=== PATIENT | male | born 1985 | race Caucasian/White ===

== ENCOUNTER 2020-05-23 06:51 | Outpatient (CLI) | payer BC, OTHER ==
[2020-05-23 17:12] LABS: Anion Gap 24 mmol/L (10-20); BUN (Urea Nitrogen) 17 mg/dL (8.9-20.6); Calc. Creatinine Clearance 0 mL/min (70-130); Calcium 8.8 mg/dL (7.8-10.44); Carbon Dioxide 22 mmol/L (22-29); Chloride 99 mmol/L (98-107); Estimated GFR-MDRD 57; Glucose 84 mg/dL (70-105); Potassium 4.7 mmol/L (3.5-5.1); Sodium 140 mmol/L (136-145)
[2020-05-23 17:15] LABS: PTT 32.9 sec (22.0-33.0); Prothrombin Time 10.6 sec (9.5-12.1)
[2020-05-23 18:08] LABS: Hemoglobin 14.1 g/dL (14.0-18.0); Mean Corpuscular HGB CONC 32.3 G/DL (32.0-36.0); Mean Corpuscular Hemoglobin 26.7 PG (27.0-33.0); Mean Corpuscular Volume 82.8 fl (80.0-100.0); Mean Platelet Volume 9.3 fl (7.4-10.4); Platelet Count 374 10x3/uL (130-400); RBC Distribution Width 13.2 % (11.5-14.5); Red Blood Cell (RBC) Count 5.28 10x6/uL (4.40-5.80); White Blood Cell (WBC) Count 8.5 10x3/uL (4.5-11.0)
[2020-05-26 00:12] LABS: SARS-CoV-2 MS2 Positive; SARS-CoV-2 N Gene Negative; SARS-CoV-2 S Gene Negative; SARS-CoV-2 by NAA Not Detected (Not Detected); SARS-CoV-2 orf1ab Negative
== END 2020-05-23 06:52 | disposition home or self-care (01) ==
LOC: LABBT 06:51
PROVIDERS: ATTEND Urology
DX: Z01.812 Encounter for preprocedural laboratory examination (principal); N20.1 Calculus of ureter; Z20.828 Contact with and (suspected) exposure to other viral communicable diseases
CPT/HCPCS: 80048; 85027; 85610; 85730; 87635; U0003

== ENCOUNTER 2020-05-28 06:02 | Day surgery (SDC) | payer BC ==
[2020-05-23 15:30] VITALS: BMI 39.8
[2020-05-28] MEDS ORDERED: Levofloxacin 500 mg/D5W 100 ml Premix Bag ONE (07:02)
[2020-05-28] MEDS ORDERED: Midazolam HCl 2 mg/2 ml Vial ONE ×2 (07:38→08:11)
--- NOTE | 2020-05-28 07:42 | RAD ---
Abdomen one view HISTORY: Preop. Renal stones. FINDINGS: Visualized bowel gas pattern is nonspecific with large amount of stool over the right colon . Double pigtail stents project over the course of each ureter, and good radiographic position. An oval 1.1 cm density obliquely overlying the mid right ureteral stent, immediately inferior to the right L2 transverse process, could represent a ureteral calculus. No other urinary tract calcifications are reliably demonstrated radiographically.
[2020-05-28] MEDS ORDERED: Iothalamate Meglumine 60% 50 ML VIAL FS ONE (08:03)
[2020-05-28] MEDS ORDERED: Fentanyl 100 MCG/2 ML VIAL ONE ×2 (08:11→10:35)
[2020-05-28] MEDS ORDERED: Famotidine/PF 20 mg/2ml Vial ONE (08:11)
[2020-05-28] MEDS ORDERED: Rocuronium Bromide 10 MG/ML (10ML VIAL) ONE (08:38)
[2020-05-28] MEDS ORDERED: EPHEDRINE 25 MG/5 ML SYRINGE ONE (08:38)
[2020-05-28] MEDS ORDERED: Ondansetron PF 4 MG/2 ML Vial ONE (08:38)
[2020-05-28] MEDS ORDERED: PROPOFOL 200 MG/20 ML VIAL ONE (08:38)
[2020-05-28] MEDS ORDERED: Metoclopramide HCl 10 MG/2 ML VIAL ONE (08:38)
[2020-05-28] MEDS ORDERED: PHENYLEPHRINE-NS 100 MCG/ML 10 ML SYRINGE ONE (08:38)
[2020-05-28] MEDS ORDERED: Lidocaine 1% PF 5 ML VIAL ONE (08:38)
[2020-05-28] MEDS ORDERED: SUGAMMADEX SODIUM 500 MG/5 ML VIAL ONE (08:43)
[2020-05-28] MEDS ORDERED: B & O ONE (09:36)
--- NOTE | 2020-05-28 10:53 | RAD ---
Retrograde pyelogram: 05/28/2020 COMPARISON: KUB 05/28/2020 HISTORY: Stone disease FINDINGS: The initial image demonstrates bilateral double-J ureteral stents. Later imaging demonstrat es replacement of bilateral double-J ureteral stents. IMPRESSION: Bilateral double-J ureteral stent exchange. This examination is technically suboptimal fo r the assessment of renal stone disease.
--- NOTE | 2020-05-28 10:58 | OP ---
DATE OF PROCEDURE: 05/28/2020 PREOPERATIVE DIAGNOSES: A 34-year-old male presented with bilateral hydronephrosis secondary to bilateral ureteral calculi: Right L3 ureteral calculi, 8 mm; left L4 mid ureteral calculi, 5 mm; left lower pole, 6 to 7 mm nonobstructing left renal calculi. POSTOPERATIVE DIAGNOSES: A 34-year-old male presented with bilateral hydronephrosis secondary to bilateral ureteral calculi: Right L3 ureteral calculi, 8 mm; left L4 mid ureteral calculi, 5 mm; left lower pole, 6 to 7 mm nonobstructing left renal calculi. PROCEDURES PERFORMED: 1. Cystoscopy. 2. Bilateral 6 x 28 double-J ureteral stent exchange. 3. Bilateral ureteroscopy. 4. Bilateral laser lithotripsy of ureteral calculi, mod 22: Bilateral ureteral calculi, left renal calculi treated 5. Left pyeloscopy. 6. Laser lithotripsy of lower pole calculi. 7. Basket extraction of ureterorenal calculi. ANESTHESIA: General. COMPLICATIONS: None apparent. DISPOSITION: To recovery room in stable condition. SPECIMEN: Stone for chemical analysis. INDICATIONS FOR PROCEDURE AND HISTORY: A 34-year-old male presented with history of recurrent kidney stone, had presented with bilateral hydronephrosis, with bilateral ureteral calculi and renal calculi dimensions as above. He underwent stent placement and presents today for stone treatment. Risks and complications of procedure have been discussed with him in detail including, but not limited to: Bleeding; pain; infection; injury to adjacent organs; urosepsis; ureteral, renal, or kidney injury; possible secondary procedure; stricture formation; sepsis. All questions answered to his satisfaction and he desired to proceed. DESCRIPTION OF PROCEDURE: After an informed consent was signed, the patient was taken to the operating room and placed in a dorsal lithotomy position with the genital area prepped and draped in the usual surgical sterile fashion. A 21- Swedish cystoscope was utilized for cystoscopy, which demonstrated normal anterior and posterior urethra. The bladder was entered, which demonstrated bullous edema of the periureteral region, consistent with ureteral stent. The right side was treated 1st, in which the right stent was removed to level the meatus and a 0.035 Sensor wire was placed into the right upper pole. Using a rigid ureteroscope, I was able to access the ureteral stone at the level of L3-L4 ureter. Stone was as previous consistent with a stone dimension on CT, and using 200 micron laser fiber at 1.0 joules, we laser fragmented the stone into multiple fragments. We basket extracted the stone debris, majority of the stone debris was basket extracted successfully. There were minute punctate residual, which he would most likely pass. A 6 x 28 double-J ureteral stent was placed into the right collecting system with adequate distal and proximal coil. At this time, we addressed the left side and again the left stent was removed as previous to the right. The left stent was removed to the level of the meatus and a 0.035 Sensor wire was placed into the left upper pole. A rigid ureteroscope was then passed. At this time, we were able to see the stone at the level of L4-L5 ureter and the laser lithotripsy again was performed with a ureteral calculi and basket extracted the stone debris. At this time, a 0.035 Super Stiff wire was placed into the left upper pole, a 13/15 navigator was then passed over the Super Stiff wire to the level of the proximal ureter. A flexible ureteroscope was then passed, in which we were able to visualize the stone. The stone appeared to be in the mid pole. We laser lithotripsied the stone into multiple tiny fragments, and basket extracted the stone debris. What remained were minute stone debris, which he would pass without significant issues. The ureter was surveyed, which demonstrated no significant stone nidus of concern. There was a residual stone nidus tiny at the level of L5 ureter, which was basket extracted through the sheath. At this time, the sheath was completely removed and a 6 x 28 double-J stent was placed into the left kidney. The bladder was completely emptied and he tolerated the procedure well. He will follow up with me next for cystoscopy and bilateral stent pull in the office. Job ID: [id number] [facility] HOSPITALDajuan
[2020-05-28] MEDS ORDERED: Promethazine HCl 25 MG/ML VIAL ONE (10:59)
[2020-05-28] MEDS ORDERED: Ondansetron ODT 8 MG TAB ONE (11:05)
[2020-05-28] MEDS ORDERED: Phenazopyridine HCl 100 MG TAB ONE (11:53)
[2020-05-28] MEDS ORDERED: Oxybutynin 5 MG TAB ONE (11:53)
[2020-05-28] MEDS ORDERED: Tamsulosin HCl 0.4 MG CAP ONE (11:53)
== END 2020-05-28 13:25 | disposition home or self-care (01) ==
LOC: SDC 06:02
PROVIDERS: ATTEND Urology
PROC: 0TC78ZZ Extirpation of Matter from Left Ureter, Via Natural or Artificial Opening Endoscopic (ICD-10-PCS; principal; 2020-05-28)
PROC: 0TC68ZZ Extirpation of Matter from Right Ureter, Via Natural or Artificial Opening Endoscopic (ICD-10-PCS; principal; 2020-05-28)
PROC: 0T788DZ Dilation of Bilateral Ureters with Intraluminal Device, Via Natural or Artificial Opening Endoscopic (ICD-10-PCS; principal; 2020-05-28)
PROC: 0TC48ZZ Extirpation of Matter from Left Kidney Pelvis, Via Natural or Artificial Opening Endoscopic (ICD-10-PCS; principal; 2020-05-28)
DX: N13.2 Hydronephrosis with renal and ureteral calculous obstruction (principal); M45.9 Ankylosing spondylitis of unspecified sites in spine; F32.9 Major depressive disorder, single episode, unspecified; F41.9 Anxiety disorder, unspecified; F43.10 Post-traumatic stress disorder, unspecified; G47.30 Sleep apnea, unspecified; Z87.820 Personal history of traumatic brain injury; Z79.1 Long term (current) use of non-steroidal anti-inflammatories (NSAID); Z79.2 Long term (current) use of antibiotics; Z79.899 Other long term (current) drug therapy; Z88.5 Allergy status to narcotic agent
CPT/HCPCS: 74018; 74420; 82365; 88300; J1956; J2250; J2405; J2550; J2704; J2765; J3010; J7620; Q0162; S0028

== ENCOUNTER 2020-09-01 15:28 | Outpatient (CLI) | payer OTHER ==
--- NOTE | 2020-09-01 16:10 | RAD ---
SUPINE ABDOMEN: History: Frequency of urination. Kidney stones. Comparison: 05-28-2020 FINDINGS: The ureteral stents noted previously have been removed. No urinary tract calcification identified on the current study. Bowel gas and stool obscure both renal outlines. Scattered stool and gas throughou t the colon. Small bowel gas pattern is unremarkable. IMPRESSION: No acute findings. POS: AGW
--- NOTE | 2020-09-01 16:13 | ULT ---
US Renal Bilateral STANDARD History: Kidney stones Comparison: None. Findings: Real-time grayscale and color evaluation of the kidneys and urinary bladder was performed. Right kidney measures 11.2 x 5.8 x 5.5 cm and the left kidney measures 12.4 x 5 x 6.8 cm. No renal ma ss, hydronephrosis or abnormal calcifications. Urinary bladder is unremarkable. Impression: No evidence for obstructive uropathy.
== END 2020-09-01 15:29 | disposition home or self-care (01) ==
LOC: BICULT 15:28
PROVIDERS: ATTEND Urology
DX: N20.0 Calculus of kidney (principal); R35.0 Frequency of micturition
CPT/HCPCS: 74018; 76770

== ENCOUNTER 2020-12-26 08:24 | Outpatient (CLI) | payer OTHER | END 2020-12-26 08:25 | disposition home or self-care (01) | LOC: BICRAD 08:24 | PROVIDERS: ATTEND Urology | DX: N20.0 Calculus of kidney (principal); R35.0 Frequency of micturition | CPT/HCPCS: 74018 ==